=== PATIENT | female | born 1985 | race Caucasian/White ===

== ENCOUNTER 2016-08-04 07:31 | Emergency (ER) | payer BC ==
[~2016-08-04] VITALS: Ht 167.6 cm; Wt 81.6 kg
[2016-08-04 07:37] VITALS: BP 132/95; PULSE 89; RESP 16; TEMP 97.2; O2SAT 99
[2016-08-04 08:38] LABS: BILIRUBIN,URINE 1+ (NEGATIVE); BLOOD, URINE 2+ (NEGATIVE); CLARITY/URINE CLEAR (CLEAR); COLOR,URINE YELLOW (YELLOW); GLUCOSE,URINE NEGATIVE (NEGATIVE); KETONES,URINE NEGATIVE (NEGATIVE); LEUKOCYTE ESTERASE ,URINE NEGATIVE (NEGATIVE); NITRITE, URINE NEGATIVE (NEGATIVE); PROTEIN URINE TRACE (NEGATIVE); UROBILINOGEN,URINE 0.2 (0.2-1.0)
[2016-08-04 08:42] LABS: BASOPHILS % (AUTO) 0.6 % (0.0-2.0); EOSINOPHILS # (AUTO) 0.1 K/uL (0.0-0.4); EOSINOPHILS % (AUTO) 1.1 % (0.0-4.0); HEMATOCRIT 36.4 % (36-48); HEMOGLOBIN 12.7 g/dL (12.0-16.0); LYMPHOCYTES # (AUTO) 1.2 K/uL (1.0-5.5); LYMPHOCYTES % (AUTO) 16.9 % (20.5-51.5); MEAN CORPUSCULAR HEMOGLOBIN 31 pg (27-31); MEAN CORPUSCULAR HGB CONC 35 % (32-36); MEAN CORPUSCULAR VOLUME 88 fL (79.0-98.0); MONOCYTES # (AUTO) 0.4 K/uL (0.0-1.0); MONOCYTES % (AUTO) 5.3 % (1.7-9.3); NEUTROPHILS # (AUTO) 5.6 K/uL (1.8-7.7); NEUTROPHILS % (AUTO) 76.1 % (40.0-70.0); PLATELET COUNT (AUTO) 216 K/uL (130-430); RED BLOOD CELL COUNT(AUTO) 4.15 MIL/uL (4.2-6.2); WHITE BLOOD COUNT (AUTO) 7.3 K/uL (4.8-10.8)
[2016-08-04 08:55] LABS: CALCIUM 9.1 mg/dL (8.4-11.0); CREATININE 0.78 mg/dL (0.55-1.30); POTASSIUM 3.4 mmol/L (3.5-5.1); PROTHROMBIN TIME 10.4 SECS (9.5-12.5)
[2016-08-04 08:56] LABS: ALBUMIN 4.1 g/dL (3.4-4.8); TOTAL BILIRUBIN 0.7 mg/dL (0.0-1.0); TOTAL PROTEIN, SERUM 7.3 g/dL (6.4-8.3)
[2016-08-04 09:05] LABS: BACTERIA,URINE FEW /HPF (None Seen); WBC,URINE 0-3 /HPF (0-3)
[2016-08-04 09:06] LABS: MUCUS,URINE 1+ /LPF (None Seen)
[2016-08-04] MEDS ORDERED: LEVO50TA77 PO (09:36)
[2016-08-04 09:54] VITALS: BP 128/86; PULSE 81; RESP 16; TEMP 97.8; O2SAT 99
== END 2016-08-04 09:54 | disposition home or self-care (01) ==
LOC: SED 07:31
DX: O20.9 Hemorrhage in early pregnancy, unspecified (principal); R03.0 Elevated blood-pressure reading, without diagnosis of hypertension; Z3A.01 Less than 8 weeks gestation of pregnancy
CPT/HCPCS: 36415; 80053; 81000-TC; 81025; 83690-TC; 85025; 85610-TC; 85730-TC; 99284

== ENCOUNTER 2017-02-09 00:40 | Observation (INO) | payer BC ==
[~2017-02-09] VITALS: Ht 168.9 cm; Wt 90.7 kg
[~2017-02-09 00:40] MED LIST: LEVO50TA77 PO
[2017-02-09 02:23] VITALS: BP_SYST 122
== END 2017-02-09 02:05 | disposition home or self-care (01) ==
LOC: SPU 00:40
PROVIDERS: ADMIT Specialist; ATTEND Specialist
DX: O36.8130 Decreased fetal movements, third trimester, not applicable or unspecified (principal); Z3A.34 34 weeks gestation of pregnancy
CPT/HCPCS: 81002-TC; G0378

== ENCOUNTER 2017-03-15 07:30 | Inpatient (IN) | payer BC ==
[~2017-03-15] VITALS: Ht 172.7 cm; Wt 92.5 kg
[2017-03-16] MEDS ORDERED: LR 1,000 ML IV ONE ×2 (05:56→08:19)
[2017-03-16] MEDS ORDERED: CEFAZOLIN 2 GM IVPB PREMIX 50 ML IV ONE ×2 (06:00→07:21)
[2017-03-16 06:43] LABS: BASOPHILS # (AUTO) 0.1 K/uL (0.0-0.2); BASOPHILS % (AUTO) 0.9 % (0.0-2.0); EOSINOPHILS # (AUTO) 0.1 K/uL (0.0-0.4); EOSINOPHILS % (AUTO) 0.8 % (0.0-4.0); HEMOGLOBIN 12.4 g/dL (12.0-16.0); LYMPHOCYTES # (AUTO) 1.5 K/uL (1.0-5.5); LYMPHOCYTES % (AUTO) 17.3 % (20.5-51.5); MEAN CORPUSCULAR HEMOGLOBIN 30 pg (27-31); MEAN CORPUSCULAR HGB CONC 34 % (32-36); MEAN CORPUSCULAR VOLUME 89 fL (79.0-98.0); MONOCYTES # (AUTO) 0.5 K/uL (0.0-1.0); MONOCYTES % (AUTO) 5.7 % (1.7-9.3); NEUTROPHILS # (AUTO) 6.3 K/uL (1.8-7.7); NEUTROPHILS % (AUTO) 75.3 % (40.0-70.0); PLATELET COUNT (AUTO) 221 K/uL (130-430); RED BLOOD CELL COUNT(AUTO) 4.17 MIL/uL (4.2-6.2); RED CELL DISTRIBUTION WIDTH 12.4 % (9.0-15.0); WHITE BLOOD COUNT (AUTO) 8.5 K/uL (4.8-10.8)
[2017-03-16 06:53] LABS: BILIRUBIN,URINE 1+ (NEGATIVE); BLOOD, URINE NEGATIVE (NEGATIVE); CLARITY/URINE HAZY (CLEAR); COLOR,URINE YELLOW (YELLOW); GLUCOSE,URINE NEGATIVE (NEGATIVE); KETONES,URINE NEGATIVE (NEGATIVE); LEUKOCYTE ESTERASE ,URINE 1+ (NEGATIVE); NITRITE, URINE NEGATIVE (NEGATIVE); PH,URINE 5.5 (5.0-8.0); PROTEIN URINE TRACE (NEGATIVE); UROBILINOGEN,URINE 0.2 (0.2-1.0)
[2017-03-16 07:05] LABS: BACTERIA,URINE MODERATE /HPF (None Seen); MUCUS,URINE 1+ /LPF (None Seen); RBC,URINE 0-3 /HPF (0-3)
[2017-03-16] MEDS ORDERED: NS IRRIG SOLN 1000 ML IR ONE (07:21)
[2017-03-16] MEDS ORDERED: MORPHINE SULFATE 10MG/10ML PF AMP EP ONE (07:21)
[2017-03-16] MEDS ORDERED: fentaNYL CITRATE/PF 100 MCG/2 ML AMP IVP ONE (07:21)
[2017-03-16] MEDS ORDERED: METOCLOPRAMIDE HCL 10 MG/2 ML VIAL IVP ONE ×2 (07:21)
[2017-03-16] MEDS ORDERED: MIDAZOLAM HCL 5 MG/5 ML VIAL IVP ONE (07:21)
[2017-03-16] MEDS ORDERED: LR 1,000 ML IV.SOLN IV ONE (07:21)
[2017-03-16] MEDS ORDERED: DEXAMETHASONE SOD PHOSPHATE 4 MG/ML VIAL IVP ONE (07:21)
[2017-03-16] MEDS ORDERED: OXYTOCIN 10 UNIT/ML VIAL IV ONE (07:21)
[2017-03-16] MEDS ORDERED: NALBUPHINE HCL 10 MG/ML AMP IVP PRN ×2 (07:30→08:30)
[2017-03-16 07:33] VITALS: BP_SYST 118
[2017-03-16] MEDS ORDERED: NALBUPHINE HCL 10 MG/ML AMP ONE (07:36)
[2017-03-16] MEDS ORDERED: fentaNYL CITRATE/PF 100 MCG/2 ML AMP IVP PRN (08:30)
[2017-03-16] MEDS ORDERED: NALOXONE HCL 0.4 MG/ML AMP (NARCAN) IVP PRN (08:30)
[2017-03-16] MEDS ORDERED: KETOROLAC TROMETHAMINE 30 MG VIAL IM PRN (08:30)
[2017-03-16] MEDS ORDERED: DIPHENHYDRAMINE INJ 50 MG/ML VIAL IVP PRN (08:30)
[2017-03-16] MEDS ORDERED: ePHEDrine sulfate 50 MG/ML VIAL IVP PRN (08:30)
[2017-03-16] MEDS ORDERED: ONDANSETRON HCL 4 MG/2 ML VIAL IVP PRN ×2 (08:30)
[2017-03-16] MEDS ORDERED: OXYTOCIN/NORMAL SALINE 1,000 ML IV ONE ×3 (08:37→08:58)
[2017-03-16] MEDS ORDERED: RHO(D) IMMUNE GLOBULIN/MALTOSE 1500 UNITS/1.3 ML (WINHRO) IM PRN (08:45)
[2017-03-16] MEDS ORDERED: LANOLIN 7 GM OINT. TP PRN (08:45)
[2017-03-16] MEDS ORDERED: MEASLES,MUMPS&RUBELLA VACC/PF 12500 UNIT/0.5 ML VIAL SUBQ PRN (08:45)
[2017-03-16] MEDS ORDERED: ANUSOL 1 EA SUPP.RECT (PREPARATION H) RC PRN (08:45)
[2017-03-16] MEDS ORDERED: HYDROcodone/ACETAMIN 5-325 MG TAB (NORCO/ VICODIN) PO PRN (08:45)
[2017-03-16] MEDS ORDERED: BISACODYL 10 MG/SUPPOSITORY RC PRN (08:45)
[2017-03-16] MEDS ORDERED: KETOROLAC TROMETHAMINE 30 MG VIAL IM ONE (12:00)
[2017-03-16] MEDS: CEFAZOLIN 1 GM IVPB PREMIX 50 ML IV SCH ×2 (14:40→20:11)
[2017-03-16] MEDS ORDERED: KETOROLAC TROMETHAMINE 30 MG VIAL IVP SCH (18:00)
[2017-03-16 18:42] VITALS: BP_SYST 118
[2017-03-16] MEDS ORDERED: TEMAZEPAM 15 MG CAPSULE PO PRN (21:00)
[2017-03-16] MEDS: LR 1,000 ML IV SCH (21:15)
[2017-03-16] MEDS: KETOROLAC TROMETHAMINE 30 MG VIAL IM SCH (23:56)
[2017-03-17] MEDS: CEFAZOLIN 1 GM IVPB PREMIX 50 ML IV SCH (02:12)
[2017-03-17] MEDS: OXYCODONE/ACETAMINOPHEN 5-325 TABLET PO PRN ×5 (02:27→23:47)
[2017-03-17] MEDS: LR 1,000 ML IV SCH (05:06)
[2017-03-17] MEDS: KETOROLAC TROMETHAMINE 30 MG VIAL IM SCH ×2 (05:47→11:33)
[2017-03-17 07:22] LABS: BASOPHILS % (AUTO) 0.4 % (0.0-2.0); EOSINOPHILS # (AUTO) 0.1 K/uL (0.0-0.4); EOSINOPHILS % (AUTO) 0.8 % (0.0-4.0); HEMATOCRIT 30.6 % (36-48); HEMOGLOBIN 10.3 g/dL (12.0-16.0); LYMPHOCYTES # (AUTO) 1.8 K/uL (1.0-5.5); LYMPHOCYTES % (AUTO) 22.5 % (20.5-51.5); MEAN CORPUSCULAR HEMOGLOBIN 30 pg (27-31); MEAN CORPUSCULAR HGB CONC 34 % (32-36); MEAN CORPUSCULAR VOLUME 90 fL (79.0-98.0); MONOCYTES # (AUTO) 0.6 K/uL (0.0-1.0); MONOCYTES % (AUTO) 7.3 % (1.7-9.3); NEUTROPHILS # (AUTO) 5.5 K/uL (1.8-7.7); PLATELET COUNT (AUTO) 187 K/uL (130-430); RED BLOOD CELL COUNT(AUTO) 3.42 MIL/uL (4.2-6.2); RED CELL DISTRIBUTION WIDTH 12.6 % (9.0-15.0)
[2017-03-17] MEDS ORDERED: OXYCODONE/ACETAMINOPHEN 5-325 TABLET PO PRN ×2 (09:15)
[2017-03-17] MEDS ORDERED: OXYCODONE/ACETAMINOPHEN 5-325 TABLET ONE (09:29)
[2017-03-17] MEDS: IBUPROFEN 600 MG TABLET PO SCH ×2 (17:59→23:32)
[2017-03-17] MEDS: DOCUSATE SODIUM 100 MG CAPSULE PO PRN (23:49)
[2017-03-17] MEDS: SENNOSIDES/DOCUSATE SODIUM 1 TAB TABLET(SENOKOT-S) PO PRN (23:49)
[2017-03-18] MEDS: OXYCODONE/ACETAMINOPHEN 5-325 TABLET PO PRN ×3 (04:20→20:48)
[2017-03-18] MEDS: SIMETHICONE 80 MG TAB.CHEW PO PRN (05:15)
[2017-03-18] MEDS: IBUPROFEN 600 MG TABLET PO SCH ×2 (06:00→12:01)
[2017-03-19] MEDS: IBUPROFEN 600 MG TABLET PO SCH ×2 (00:18→06:18)
[2017-03-19] MEDS: SIMETHICONE 80 MG TAB.CHEW PO PRN ×2 (00:21→09:03)
[2017-03-19] MEDS: SENNOSIDES/DOCUSATE SODIUM 1 TAB TABLET(SENOKOT-S) PO PRN (00:25)
[2017-03-19] MEDS: OXYCODONE/ACETAMINOPHEN 5-325 TABLET PO PRN ×3 (02:56→09:10)
[2017-03-19] MEDS: DOCUSATE SODIUM 100 MG CAPSULE PO PRN (09:04)
== END 2017-03-19 12:00 | disposition home or self-care (01) | DRG 766 ==
LOC: SPU 03-16 05:30
PROVIDERS: ADMIT Specialist; ATTEND Specialist
PROC: 10D00Z1 Extraction of Products of Conception, Low, Open Approach (ICD-10-PCS; principal; 2017-03-16 07:30)
DX: O99.214 Obesity complicating childbirth (principal); E66.9 Obesity, unspecified; Z68.31 Body mass index [BMI] 31.0-31.9, adult; O36.63X0 Maternal care for excessive fetal growth, third trimester, not applicable or unspecified; Z3A.39 39 weeks gestation of pregnancy; Z37.0 Single live birth
CPT/HCPCS: 36415; 81000-TC; 85025; 86592; 86870; 86886; 86900; 86901; 87086; 94760; A4618; J0690; J1100; J1885; J2250; J2274; J2300; J2590; J2765; J2790; J3010; J7120

== ENCOUNTER 2018-06-07 07:06 | Emergency (ER) | payer BC ==
[~2018-06-07] VITALS: Ht 170.2 cm; Wt 70.3 kg
[~2018-06-07 07:06] MED LIST changes: -LEVO50TA77 PO; +SYN50 PO
[2018-06-07 07:11] VITALS: BP_SYST 159
[2018-06-07] MEDS ORDERED: KETOROLAC TROMETHAMINE 60 MG/2 ML VIAL IM ONE (07:30)
== END 2018-06-07 08:06 | disposition home or self-care (01) ==
LOC: SED 07:06
DX: J06.9 Acute upper respiratory infection, unspecified (principal); R05 Cough; R03.0 Elevated blood-pressure reading, without diagnosis of hypertension; K21.9 Gastro-esophageal reflux disease without esophagitis
CPT/HCPCS: 81025; 96372; 99283; J1885

== ENCOUNTER 2020-08-18 08:18 | Outpatient (CLI) | payer BC | END 2020-08-18 21:06 | disposition home or self-care (01) | LOC: SUS 08:18 | PROVIDERS: ATTEND Internal Medicine | DX: E03.9 Hypothyroidism, unspecified (principal) | CPT/HCPCS: 76536-TC ==

== ENCOUNTER 2023-09-25 12:47 | Emergency (ER) | payer BC ==
[~2023-09-25] VITALS: Ht 170.2 cm; Wt 62.6 kg
[2023-09-25 13:09] VITALS: BP_SYST 139; PULSE 90; RESP 20; TEMP 98.2; O2SAT 100
[2023-09-25 13:55] LABS: BASOPHILS # (AUTO) 0.1 K/uL (0.0-0.2); BASOPHILS % (AUTO) 0.8 % (0.0-2.0); EOSINOPHILS # (AUTO) 0.1 K/uL (0.0-0.4); EOSINOPHILS % (AUTO) 1.9 % (0.0-4.0); HEMATOCRIT 38.1 % (36-48); HEMOGLOBIN 13.1 g/dL (12.0-16.0); LYMPHOCYTES % (AUTO) 12.8 % (20.5-51.5); MEAN CORPUSCULAR HEMOGLOBIN 33 pg (27-31); MEAN CORPUSCULAR HGB CONC 34 % (32-36); MEAN CORPUSCULAR VOLUME 96 fL (79.0-98.0); MONOCYTES # (AUTO) 0.6 K/uL (0.0-1.0); MONOCYTES % (AUTO) 7.9 % (1.7-9.3); NEUTROPHILS # (AUTO) 5.9 K/uL (1.8-7.7); NEUTROPHILS % (AUTO) 76.6 % (40.0-70.0); PLATELET COUNT (AUTO) 212 K/uL (130-430); RED BLOOD CELL COUNT(AUTO) 3.98 MIL/uL (4.2-6.2); RED CELL DISTRIBUTION WIDTH 14.7 % (9.0-15.0); WHITE BLOOD COUNT (AUTO) 7.6 K/uL (4.8-10.8)
[2023-09-25 14:06] LABS: ANION GAP 8 (5-15); CALCIUM 8.9 mg/dL (8.4-11.0); CARBON DIOXIDE 28 mmol/L (23-29); CHLORIDE 92 mmol/L (98-107); CREATININE 0.73 mg/dL (0.55-1.30); GFR AFRICAN AMERICAN 114 mL/min (>90); GLUCOSE 116 mg/dL (74-106); SODIUM SERUM 128 mmol/L (136-145); UREA NITROGEN, BLOOD 6 mg/dL (8-21)
[2023-09-25 14:08] LABS: GFR NON AFRICAN-AMERICAN 94 mL/min (>90)
[2023-09-25] MEDS: KETOROLAC TROMETHAMINE 30 MG VIAL IVP ONE (14:31)
[2023-09-25] MEDS: LORazepam 2 MG/ML VIAL IVP ONE (14:31)
[2023-09-25 14:40] LABS: SERUM HCG (QUALITATIVE) NEGATIVE (NEGATIVE)
[2023-09-25 14:53] LABS: THYROID STIMULATING HORMONE 1.97 uIu/mL (0.34-4.82)
[2023-09-25 15:00] LABS: ERYTHROCYTE SEDIMENTATION RATE 5 MM/HR (0-20)
[2023-09-25] MEDS: MAGNESIUM SULFATE 50 ML IV ONE (15:55)
[2023-09-25] MEDS: NACL 0.9% 1,000 ML IV ONE ×2 (15:55→16:10)
[2023-09-25] MEDS: POTASSIUM CHLORIDE 20 MEQ/PKT PACKET PO ONE (15:56)
[2023-09-25 17:02] LABS: BILIRUBIN,URINE NEGATIVE (NEGATIVE); CLARITY/URINE CLEAR (CLEAR); COLOR,URINE YELLOW (YELLOW); GLUCOSE,URINE NEGATIVE (NEGATIVE); KETONES,URINE 1+ (NEGATIVE); LEUKOCYTE ESTERASE ,URINE NEGATIVE (NEGATIVE); NITRITE, URINE NEGATIVE (NEGATIVE); PH,URINE 6.5 (5.0-8.0); PROTEIN URINE NEGATIVE (NEGATIVE); UROBILINOGEN,URINE 0.2 (0.2-1.0)
[2023-09-25 17:18] LABS: BLOOD, URINE TRACE (NEGATIVE)
[2023-09-25 17:19] LABS: BACTERIA,URINE RARE /HPF (None Seen); MUCUS,URINE None Seen /LPF (None Seen); RBC,URINE 0-3 /HPF (0-3); WBC,URINE NONE SEEN /HPF (0-3)
[2023-09-25 18:18] LABS: CALCIUM 8.6 mg/dL (8.4-11.0); CREATININE 0.7 mg/dL (0.55-1.30)
[2023-09-25 19:49] VITALS: BP_SYST 135; PULSE 78; RESP 18; TEMP 98.3; O2SAT 98
== END 2023-09-25 19:49 | disposition home or self-care (01) ==
LOC: SED 12:47
DX: E87.1 Hypo-osmolality and hyponatremia (principal); E83.42 Hypomagnesemia; R07.89 Other chest pain; K21.9 Gastro-esophageal reflux disease without esophagitis
CPT/HCPCS: 36415; 71045; 76830; 76857; 80048; 81000; 81001; 81015; 83735; 83880; 84439; 84443; 84484; 84703; 85025; 85379; 85651; 93005; 96365; 96366; 99285; J1885; J3475